=== PATIENT | male | born 1970 | race Caucasian/White ===

== ENCOUNTER 2020-06-18 08:03 | Inpatient (IN) | payer MEDICAID ==
[~2020-06-18] VITALS: Ht 177.8 cm; Wt 88.5 kg
[2020-06-18] MEDS ORDERED: LORAZEPAM 2MG/ML CPJ IV ONE (08:30)
[2020-06-18] MEDS ORDERED: SODIUM CHLORIDE 0.9% 1,000 ML IV ONE (08:30)
[2020-06-18] MEDS ORDERED: KETOROLAC 30MG/ML VIAL IV ONE (08:30)
[2020-06-18 09:39] LABS: BASOPHILS % 0.4 % (0.0-2.0); EOSINOPHILS % 0.9 % (0.0-5.0); HEMATOCRIT. 46.1 % (42.0-52.0); HEMOGLOBIN. 15.6 g/dL (14.0-18.0); LYMPHOCYTES % 19.2 % (20.0-50.0); MEAN CORPUSCULAR HEMOGLOBIN 32.1 pg (28.0-32.0); MEAN CORPUSCULAR VOLUME 94.9 fL (80.0-94.0); MONOCYTES % 6.5 % (2.0-8.0); PLATELET 163 x1000/uL (130-400); RED BLOOD CELL COUNT 4.86 mill/uL (4.7-6.1); RED CELL DISTRIBUTION WIDTH 13.3 % (11.6-14.6)
[2020-06-18 09:46] LABS: CLARITY URINE CLEAR (CLEAR); COLOR URINE YELLOW (YELLOW); KETONES URINE NEGATIVE (NEGATIVE); LEUKOCYTE ESTERASE URINE TRACE (NEGATIVE); NITRITE URINE NEGATIVE (NEGATIVE); OCCULT BLOOD URINE TRACE (NEGATIVE); PH URINE 7.5 (4.5-8.0); PROTEIN URINE 2+ (NEGATIVE); SPECIFIC GRAVITY URINE 1.014 (1.005-1.030)
[2020-06-18 09:49] LABS: CHLORIDE 110 mEq/L (98-107)
[2020-06-18 09:51] LABS: D-DIMER 0.97 mg/L FEU (<0.50)
[2020-06-18 09:53] LABS: ETHANOL BLOOD < 10 mg/dL
[2020-06-18] MEDS ORDERED: FUROSEMIDE 40MG/4ML VIAL IVP ONE (10:30)
[2020-06-18] MEDS ORDERED: IOHEXOL-350 100 ML BOTTLE ONE (11:30)
[2020-06-18 13:59] VITALS: BP 170/110
[2020-06-18] MEDS ORDERED: ONDANSETRON HCL 4MG/2ML INJ IV PRN (14:00)
[2020-06-18] MEDS ORDERED: ACETAMINOPHEN 325MG TABLET PO PRN (14:00)
[2020-06-18] MEDS ORDERED: TRAZ-252 MT (14:10)
[2020-06-18] MEDS ORDERED: QUET100T PO (14:10)
[2020-06-18] MEDS ORDERED: LURA120T PO (14:10)
[2020-06-18] MEDS ORDERED: NAPR-1176 PO (14:10)
[2020-06-18] MEDS: AMLODIPINE 10MG TABLET PO SCH (14:22)
[2020-06-18] MEDS: ENOXAPARIN 40MG/0.4ML SYR SUBCUT SCH (14:23)
[2020-06-18 14:35] VITALS: BP 146/110
[2020-06-18 14:40] VITALS: BP 170/110
[2020-06-18 16:10] VITALS: BP 148/108
[2020-06-18] MEDS ORDERED: NON FORMULARY PATIENT HOME MED PO SCH (16:15)
[2020-06-18] MEDS ORDERED: NAPROXEN 250MG TABLET PO PRN (16:15)
[2020-06-18] MEDS: FUROSEMIDE 40MG/4ML VIAL IVP SCH (17:37)
[2020-06-18 20:00] VITALS: BP 143/98
[2020-06-18] MEDS ORDERED: TRAZODONE HCL 50MG TABLET PO SCH (21:00)
[2020-06-18 21:15] LABS: *AMPHETAMINES SCREEN URINE PRESUMTIVE POSITIVE (NEGATIVE)
[2020-06-18 21:16] LABS: *BARBITURATES SCREEN URINE NEGATIVE (NEGATIVE); *BENZODIAZEPINES SCREEN URINE NEGATIVE (NEGATIVE); *COCAINE SCREEN URINE NEGATIVE (NEGATIVE); METHADONE URINE SCREEN NEGATIVE (NEGATIVE); OPIATES URINE SCREEN NEGATIVE (NEGATIVE)
[2020-06-18 21:17] LABS: CANNABINOID URINE SCREEN PRESUMTIVE POSITIVE (NEGATIVE); PHENCYCLIDINE URINE SCREEN NEGATIVE (NEGATIVE)
[2020-06-19 04:00] VITALS: BP 143/97
[2020-06-19] MEDS: FUROSEMIDE 40MG/4ML VIAL IVP SCH ×2 (06:45→17:52)
[2020-06-19 06:46] LABS: BASOPHILS % 0.8 % (0.0-2.0); EOSINOPHILS % 2.8 % (0.0-5.0); HEMATOCRIT. 45.5 % (42.0-52.0); HEMOGLOBIN. 15.7 g/dL (14.0-18.0); LYMPHOCYTES % 23.8 % (20.0-50.0); MEAN CORPUSCULAR HEMOGLOBIN 32.4 pg (28.0-32.0); MEAN PLATELET VOLUME 10.1 fl (7.4-10.4); MONOCYTES % 8.3 % (2.0-8.0); NEUTROPHILS % 64.3 % (40.0-76.0); PLATELET 162 x1000/uL (130-400); RED BLOOD CELL COUNT 4.84 mill/uL (4.7-6.1); RED CELL DISTRIBUTION WIDTH 13.2 % (11.6-14.6)
[2020-06-19 07:22] LABS: CHLORIDE 107 mEq/L (98-107)
[2020-06-19 08:00] VITALS: BP 145/96
[2020-06-19] MEDS ORDERED: NICOTINE 21MG PATCH TD SCH (08:00)
[2020-06-19] MEDS: ENOXAPARIN 40MG/0.4ML SYR SUBCUT SCH (08:27)
[2020-06-19] MEDS: AMLODIPINE 10MG TABLET PO SCH (08:29)
[2020-06-19] MEDS ORDERED: QUETIAPINE FUMARATE 50MG TABLET PO SCH (09:00)
[2020-06-19] MEDS ORDERED: POTASSIUM CHLORIDE 20MEQ TABLET SR PO NR (09:00)
[2020-06-19] MEDS ORDERED: POTASSIUM CHLORIDE 20MEQ TABLET SR PO SCH (09:00)
[2020-06-19 12:00] VITALS: BP 114/85
[2020-06-19] MEDS ORDERED: HYDROCODONE/ACETAMINOPHEN 5/325MG TABLET PO PRN (15:45)
[2020-06-19 16:00] VITALS: BP 151/97
[2020-06-19] MEDS ORDERED: FURO-151 MT (17:10)
[2020-06-19] MEDS ORDERED: LOSA50TA41 MT (17:10)
[2020-06-19] MEDS ORDERED: POTA20TA82 PO (17:10)
[2020-06-19] MEDS ORDERED: CARV12.545 MT (17:10)
[2020-06-19 18:03] VITALS: BP 151/97
== END 2020-06-19 19:25 | disposition home or self-care (01) | DRG 194 ==
LOC: ER 08:03 → EDBEDREQ 10:27 → 6WST 11:52 → EDBEDREQ 11:56 → ENRESERV 11:59
PROVIDERS: ADMIT Internal Medicine; ATTEND Internal Medicine
DX: I11.0 Hypertensive heart disease with heart failure (principal); I16.0 Hypertensive urgency; E87.8 Other disorders of electrolyte and fluid balance, not elsewhere classified; F15.10 Other stimulant abuse, uncomplicated; F17.210 Nicotine dependence, cigarettes, uncomplicated; F12.10 Cannabis abuse, uncomplicated; E78.5 Hyperlipidemia, unspecified; E87.6 Hypokalemia; I50.43 Acute on chronic combined systolic (congestive) and diastolic (congestive) heart failure; Z71.6 Tobacco abuse counseling; Z71.51 Drug abuse counseling and surveillance of drug abuser
CPT/HCPCS: 36415; 71045; 71275; 80048; 80053; 80305; 80320; 81003; 83605; 83735; 83880; 84145; 84443; 84484; 85025; 85379; 93005; 93306; 93970; 99291; J1650; J1885; J1940; J2060; J7030; Q9967; G0480